=== PATIENT | male | born 1940 | race Caucasian/White ===

== ENCOUNTER → 2021-10-26 | Outpatient (REF) | payer MEDICARE, MEDICAID ==
[2021-10-26 18:50] LABS: BASO # 0.1 10^3/uL (0.0-0.2); BASO % 1.2 % (0.0-1.0); EOS # 0.1 10^3/uL (0.0-0.5); EOS % 1.3 % (0.0-3.0); HEMATOCRIT 29.1 % (42.0-52.0); HEMOGLOBIN 9.5 g/dl (13.5-17.5); LYMPH # 1.1 10^3/uL (1.5-5.0); LYMPH % 21.3 % (24.0-44.0); MEAN CORPUSCULAR HEMOGLOBIN 34.1 pg (27.0-33.0); MEAN CORPUSCULAR HGB CONC 32.6 g/dl (32.0-36.5); MEAN CORPUSCULAR VOLUME 104.3 fl (80.0-96.0); MONO # 0.7 10^3/uL (0.0-0.8); MONO % 13.2 % (2.0-8.0); NEUTROPHILS # 3.2 10^3/uL (1.5-8.5); NEUTROPHILS % 62.2 % (36.0-66.0); PLATELET COUNT, AUTOMATED 228 10^3/uL (150-450); RED BLOOD COUNT 2.79 10^6/uL (4.30-6.10); WHITE BLOOD COUNT 5.2 10^3/uL (4.0-10.0)
[2021-10-26 19:38] LABS: ALBUMIN 3.4 GM/DL (3.2-5.2); ALT/SGPT 18 U/L (12-78); BILIRUBIN,TOTAL < 0.1 MG/DL (0.2-1.0); BLOOD UREA NITROGEN 78 MG/DL (7-18); CALCIUM LEVEL 8.7 MG/DL (8.8-10.2); CARBON DIOXIDE LEVEL 23 MEQ/L (21-32); CHLORIDE LEVEL 105 MEQ/L (98-107); CREATININE FOR GFR 2.47 MG/DL (0.70-1.30); FERRITIN 355 NG/ML (26-388); FOLATE 15.8 NG/ML; FREE T4 1.06 NG/DL (0.76-1.46); GLOMERULAR FILTRATION RATE 26.9 (>35); GLUCOSE, FASTING 109 MG/DL (70-100); IRON (FE) 118 UG/DL (65-175); PERCENT SATURATION 38.4 % (19.7-50.0); POTASSIUM SERUM 4.6 MEQ/L (3.5-5.1); SODIUM LEVEL 139 MEQ/L (136-145); TOTAL 25(OH) VITAMIN D 39.8 NG/ML (30.0-100.0); TOTAL IRON BINDING CAPACITY 307 UG/DL (250-450); TOTAL PROTEIN 7.6 GM/DL (6.4-8.2); VITAMIN B12 LEVEL 803 PG/ML
[2021-10-26 19:57] LABS: HEMOGLOBIN A1c 5.2 %
== END ==
LOC: M SFHCADAM 15:18
PROVIDERS: ATTEND Physician Assistant
DX: E11.36 Type 2 diabetes mellitus with diabetic cataract (principal); I48.91 Unspecified atrial fibrillation; E53.8 Deficiency of other specified B group vitamins; E61.1 Iron deficiency; K21.9 Gastro-esophageal reflux disease without esophagitis; E55.9 Vitamin D deficiency, unspecified; R60.0 Localized edema

== ENCOUNTER → 2021-12-17 | Outpatient (REF) | payer MEDICARE, MEDICAID ==
[2021-12-17 12:57] LABS: HEMATOCRIT 27.4 % (42.0-52.0); MEAN CORPUSCULAR HGB CONC 32.8 g/dl (32.0-36.5); MEAN CORPUSCULAR VOLUME 103.4 fl (80.0-96.0); PLATELET COUNT, AUTOMATED 185 10^3/uL (150-450); RED BLOOD COUNT 2.65 10^6/uL (4.30-6.10); WHITE BLOOD COUNT 5.5 10^3/uL (4.0-10.0)
[2021-12-17 13:16] LABS: HEMOGLOBIN A1c 5.6 %
[2021-12-17 13:27] LABS: ALBUMIN 3.2 GM/DL (3.2-5.2); BILIRUBIN,TOTAL 0.6 MG/DL (0.2-1.0); CALCIUM LEVEL 8.9 MG/DL (8.8-10.2); CREATININE FOR GFR 2.69 MG/DL (0.70-1.30); GLOMERULAR FILTRATION RATE 24.4 (>35); POTASSIUM SERUM 4.4 MEQ/L (3.5-5.1); TOTAL PROTEIN 6.9 GM/DL (6.4-8.2)
[2021-12-18 17:07] LABS: FREE KAPPA LIGHT CHAINS SERUM 91.2 mg/L (3.3-19.4); FREE LAMBDA LIGHT CHAINS SERUM 55.6 mg/L (5.7-26.3); KAPPA/LAMBDA RATIO SERUM 1.64 (0.26-1.65)
== END ==
LOC: M SFHCADAM 07:30
PROVIDERS: ATTEND Physician Assistant
DX: N18.4 Chronic kidney disease, stage 4 (severe) (principal); E11.36 Type 2 diabetes mellitus with diabetic cataract; D63.1 Anemia in chronic kidney disease; I48.91 Unspecified atrial fibrillation

== ENCOUNTER 2022-02-06 13:01 | Inpatient (IN) | payer MEDICARE, MEDICAID ==
[~2022-02-06] VITALS: Ht 180.3 cm; Wt 87.3 kg
[2022-02-06] MEDS ORDERED: VITA200016 PO (13:11)
[2022-02-06] MEDS ORDERED: PANT40TA29 PO (13:11)
[2022-02-06] MEDS ORDERED: MELA3TAB30 PO (13:11)
[2022-02-06] MEDS ORDERED: LOSA50TA28 PO (13:11)
[2022-02-06] MEDS ORDERED: SIMV20TA22 PO (13:11)
[2022-02-06] MEDS ORDERED: FERR325T19 PO (13:11)
[2022-02-06] MEDS ORDERED: MULT-90 PO (13:11)
[2022-02-06] MEDS ORDERED: PRAD75CA5 PO (13:11)
[2022-02-06] MEDS ORDERED: VITA500T40 PO (13:11)
[2022-02-06] MEDS ORDERED: METO1TAB7 PO (13:11)
[2022-02-06] MEDS ORDERED: TORS20TA2 PO (13:11)
[2022-02-06 17:48] LABS: BASO # 0.1 10^3/uL (0.0-0.2); BASO % 0.6 % (0.0-1.0); EOS # 0.1 10^3/uL (0.0-0.5); EOS % 1.1 % (0.0-3.0); HEMATOCRIT 30.6 % (42.0-52.0); HEMOGLOBIN 9.9 g/dl (13.5-17.5); LYMPH # 0.8 10^3/uL (1.5-5.0); LYMPH % 9.6 % (24.0-44.0); MEAN CORPUSCULAR HGB CONC 32.4 g/dl (32.0-36.5); MEAN CORPUSCULAR VOLUME 105.2 fl (80.0-96.0); MONO # 0.9 10^3/uL (0.0-0.8); NEUTROPHILS # 6.5 10^3/uL (1.5-8.5); NEUTROPHILS % 76.7 % (36.0-66.0); PLATELET COUNT, AUTOMATED 260 10^3/uL (150-450); RED BLOOD COUNT 2.91 10^6/uL (4.30-6.10); WHITE BLOOD COUNT 8.4 10^3/uL (4.0-10.0)
[2022-02-06 18:11] LABS: ERYTHROCYTE SEDIMENTATION RATE 73 mm/hr (0-20)
[2022-02-06] MEDS ORDERED: cefTRIAXone SOD 1 GM in D5W MINI-BAG PLUS 50 ML IV ONE (18:55)
[2022-02-06] MEDS ORDERED: PIPERACILLIN/TAZOBACTAM SOD 3.375 GM in D5W MINI-BAG PLUS 50 ML IV ONE (19:00)
[2022-02-06] MEDS ORDERED: ACETAMINOPHEN 325 MG TAB PO ONE (19:00)
[2022-02-06 19:15] LABS: C REACTIVE PROTEIN QUANTITATIV 1.65 MG/DL (0.00-0.30); CALCIUM LEVEL 9.9 MG/DL (8.8-10.2); CREATININE FOR GFR 2.23 MG/DL (0.70-1.30); GLOMERULAR FILTRATION RATE 30.3 (>35); POTASSIUM SERUM 4.8 MEQ/L (3.5-5.1)
[2022-02-06] MEDS ORDERED: HOME MED LIST COMPLETE! XX SCH (20:15)
[2022-02-06 20:54] LABS: HEMOGLOBIN A1c 6.4 %
[2022-02-06] MEDS ORDERED: VANCOMYCIN HCL 750 MG, VIAL MATE ADAPTER 1 EACH in NS 250 ML IV ONE ×2 (22:00→23:00)
[2022-02-06 23:00] VITALS: BP 116/68
[2022-02-07] MEDS: PIPERACILLIN/TAZOBACTAM SOD 3.375 GM in D5W MINI-BAG PLUS 50 ML IV SCH ×2 (01:39→09:57)
[2022-02-07 02:00] VITALS: BP 116/66
[2022-02-07 05:51] VITALS: BP 110/68
[2022-02-07 06:21] LABS: BASO % 0.6 % (0.0-1.0); EOS # 0.1 10^3/uL (0.0-0.5); EOS % 1.8 % (0.0-3.0); HEMATOCRIT 26.8 % (42.0-52.0); HEMOGLOBIN 8.9 g/dl (13.5-17.5); LYMPH # 0.7 10^3/uL (1.5-5.0); MEAN CORPUSCULAR HGB CONC 33.2 g/dl (32.0-36.5); MEAN CORPUSCULAR VOLUME 105.5 fl (80.0-96.0); MONO # 0.9 10^3/uL (0.0-0.8); MONO % 13.2 % (2.0-8.0); NEUTROPHILS % 73.8 % (36.0-66.0); PLATELET COUNT, AUTOMATED 203 10^3/uL (150-450); RED BLOOD COUNT 2.54 10^6/uL (4.30-6.10); WHITE BLOOD COUNT 6.8 10^3/uL (4.0-10.0)
[2022-02-07 06:43] LABS: ALBUMIN 2.8 GM/DL (3.2-5.2); BILIRUBIN,TOTAL 0.8 MG/DL (0.2-1.0); CALCIUM LEVEL 9.4 MG/DL (8.8-10.2); CREATININE FOR GFR 1.96 MG/DL (0.70-1.30); GLOMERULAR FILTRATION RATE 35.1 (>35); POTASSIUM SERUM 4.6 MEQ/L (3.5-5.1); TOTAL PROTEIN 6.6 GM/DL (6.4-8.2)
[2022-02-07] MEDS: FERROUS SULFATE 325MG TAB PO SCH (09:58)
[2022-02-07] MEDS: SIMVASTATIN 20 MG TAB PO SCH (09:58)
[2022-02-07] MEDS: SANTYL OINT 30GM TOP SCH (09:58)
[2022-02-07 10:00] VITALS: BP 129/72
[2022-02-07] MEDS: LOSARTAN 50MG TABLET PO SCH (10:00)
[2022-02-07] MEDS: PANTOPRAZOLE 40MG TAB (PROTONIX) PO SCH (10:01)
[2022-02-07] MEDS: TORSEMIDE 20 MG TAB PO SCH (10:01)
[2022-02-07] MEDS: METOPROLOL SUCC (TopROL XL) 50MG **XL** TAB PO SCH (10:01)
[2022-02-07] MEDS ORDERED: ACETAMINOPHEN TAB 650MG DOSE (2X325MG) PO PRN (10:40)
[2022-02-07] MEDS ORDERED: VANCOMYCIN HCL 1,000 MG, VIAL MATE ADAPTER 1 EACH in NS 250 ML IV SCH (13:00)
[2022-02-07 14:00] VITALS: BP 102/58
[2022-02-07] MEDS: PIPERACILLIN/TAZOBACTAM SOD 2.25 GM in D5W MINI-BAG PLUS 50 ML IV SCH ×2 (14:24→20:28)
[2022-02-07] MEDS ORDERED: CYANOCOBALAMIN 500 MCG TAB PO SCH (17:00)
[2022-02-07 18:00] VITALS: BP 106/52
[2022-02-07 22:00] VITALS: BP 102/59
[2022-02-08 02:00] VITALS: BP 99/68
[2022-02-08] MEDS: PIPERACILLIN/TAZOBACTAM SOD 2.25 GM in D5W MINI-BAG PLUS 50 ML IV SCH ×2 (03:15→08:06)
[2022-02-08 06:00] VITALS: BP 102/67
[2022-02-08 06:22] LABS: BASO % 0.5 % (0.0-1.0); EOS # 0.1 10^3/uL (0.0-0.5); EOS % 2.1 % (0.0-3.0); HEMATOCRIT 26.1 % (42.0-52.0); HEMOGLOBIN 8.5 g/dl (13.5-17.5); LYMPH # 0.6 10^3/uL (1.5-5.0); MEAN CORPUSCULAR HEMOGLOBIN 34.7 pg (27.0-33.0); MEAN CORPUSCULAR HGB CONC 32.6 g/dl (32.0-36.5); MEAN CORPUSCULAR VOLUME 106.5 fl (80.0-96.0); MONO % 14.5 % (2.0-8.0); NEUTROPHILS # 4.8 10^3/uL (1.5-8.5); NEUTROPHILS % 73.1 % (36.0-66.0); PLATELET COUNT, AUTOMATED 191 10^3/uL (150-450); RED BLOOD COUNT 2.45 10^6/uL (4.30-6.10); WHITE BLOOD COUNT 6.5 10^3/uL (4.0-10.0)
[2022-02-08 06:54] LABS: ALBUMIN 2.6 GM/DL (3.2-5.2); BILIRUBIN,TOTAL 0.7 MG/DL (0.2-1.0); CALCIUM LEVEL 8.8 MG/DL (8.8-10.2); CREATININE FOR GFR 2.13 MG/DL (0.70-1.30); GLOMERULAR FILTRATION RATE 31.9 (>35); POTASSIUM SERUM 4.2 MEQ/L (3.5-5.1); TOTAL PROTEIN 6.4 GM/DL (6.4-8.2)
[2022-02-08] MEDS: PANTOPRAZOLE 40MG TAB (PROTONIX) PO SCH (08:04)
[2022-02-08 08:05] VITALS: BP 102/67
[2022-02-08] MEDS: TORSEMIDE 20 MG TAB PO SCH (08:05)
[2022-02-08] MEDS: METOPROLOL SUCC (TopROL XL) 50MG **XL** TAB PO SCH (08:05)
[2022-02-08] MEDS: SIMVASTATIN 20 MG TAB PO SCH (08:06)
[2022-02-08] MEDS: FERROUS SULFATE 325MG TAB PO SCH (08:06)
[2022-02-08] MEDS: LOSARTAN 50MG TABLET PO SCH (08:06)
[2022-02-08] MEDS: SANTYL OINT 30GM TOP SCH (08:11)
[2022-02-08] MEDS ORDERED: DABIGATRAN ETEXILATE 75 MG CAP (PRADAXA) PO SCH (09:00)
[2022-02-08 10:00] VITALS: BP 98/55
[2022-02-08] MEDS ORDERED: SANT250O8 TOP (14:09)
[2022-02-08] MEDS ORDERED: CVS1CAP2 PO (14:09)
[2022-02-08] MEDS ORDERED: AUGM500T34 PO (14:09)
== END 2022-02-08 15:22 | disposition home health service (06) | DRG 623 ==
LOC: M ED 13:01 → M ED INP 19:58 → ENRESERV 21:21 → M MSPAV 22:29
PROVIDERS: ADMIT Family Medicine; ATTEND Internal Medicine
PROC: 0JBQ0ZZ Excision of Right Foot Subcutaneous Tissue and Fascia, Open Approach (ICD-10-PCS; principal; 2022-02-07)
DX: E11.621 Type 2 diabetes mellitus with foot ulcer (principal); I50.32 Chronic diastolic (congestive) heart failure; L89.619 Pressure ulcer of right heel, unspecified stage; I11.0 Hypertensive heart disease with heart failure; E11.40 Type 2 diabetes mellitus with diabetic neuropathy, unspecified; K21.9 Gastro-esophageal reflux disease without esophagitis; E78.00 Pure hypercholesterolemia, unspecified; I48.91 Unspecified atrial fibrillation; E78.5 Hyperlipidemia, unspecified; Z89.512 Acquired absence of left leg below knee; Z79.899 Other long term (current) drug therapy; Z66 Do not resuscitate; Z98.42 Cataract extraction status, left eye

== ENCOUNTER → 2022-03-20 | Outpatient (REF) | payer MEDICARE, MEDICAID ==
[~2022-03-20] MED LIST: AUGM500T34 PO; CVS1CAP2 PO; FERR325T19 PO; LOSA50TA28 PO; MELA3TAB30 PO; METO1TAB7 PO; MULT-90 PO; PANT40TA29 PO; PRAD75CA5 PO; SANT250O8 TOP; SIMV20TA22 PO; TORS20TA2 PO; VITA200016 PO; VITA500T40 PO
[2022-03-20 13:03] LABS: HEMATOCRIT 30.5 % (42.0-52.0); HEMOGLOBIN 9.8 g/dl (13.5-17.5); MEAN CORPUSCULAR HEMOGLOBIN 35.1 pg (27.0-33.0); MEAN CORPUSCULAR HGB CONC 32.1 g/dl (32.0-36.5); MEAN CORPUSCULAR VOLUME 109.3 fl (80.0-96.0); PLATELET COUNT, AUTOMATED 215 10^3/uL (150-450); RED BLOOD COUNT 2.79 10^6/uL (4.30-6.10); WHITE BLOOD COUNT 6.2 10^3/uL (4.0-10.0)
[2022-03-20 13:36] LABS: ALBUMIN 3.3 GM/DL (3.2-5.2); BILIRUBIN,TOTAL 0.6 MG/DL (0.2-1.0); CALCIUM LEVEL 9.8 MG/DL (8.8-10.2); CREATININE FOR GFR 2.07 MG/DL (0.70-1.30); GLOMERULAR FILTRATION RATE 32.9 (>35); POTASSIUM SERUM 4.8 MEQ/L (3.5-5.1); TOTAL PROTEIN 7.9 GM/DL (6.4-8.2)
== END ==
LOC: M SFHCADAM 08:11
PROVIDERS: ATTEND Physician Assistant
DX: E11.36 Type 2 diabetes mellitus with diabetic cataract (principal); D63.1 Anemia in chronic kidney disease; N18.4 Chronic kidney disease, stage 4 (severe)

== ENCOUNTER → 2022-06-12 | Outpatient (REF) | payer MEDICARE, MEDICAID ==
[2022-06-12 18:56] LABS: IRON (FE) 35 UG/DL (65-175); PERCENT SATURATION 13.5 % (19.7-50.0); TOTAL IRON BINDING CAPACITY 260 UG/DL (250-450)
[2022-06-12 18:57] LABS: FERRITIN 349 NG/ML (26-388)
[2022-06-12 19:48] LABS: FOLATE 10.9 NG/ML
[2022-06-13 10:00] LABS: VITAMIN B12 LEVEL > 2000 PG/ML
== END ==
LOC: M LAB REF 17:48
PROVIDERS: ATTEND Internal Medicine Nephrology
DX: N18.9 Chronic kidney disease, unspecified (principal); D63.1 Anemia in chronic kidney disease

== ENCOUNTER → 2023-01-02 | Outpatient (CLI) | payer MEDICARE, MEDICAID ==
[2023-01-02 13:14] LABS: BASO % 0.5 % (0.0-1.0); EOS # 0.1 10^3/uL (0.0-0.5); EOS % 0.8 % (0.0-3.0); HEMATOCRIT 31.6 % (42.0-52.0); HEMOGLOBIN 10.3 g/dl (13.5-17.5); LYMPH # 0.6 10^3/uL (1.5-5.0); LYMPH % 9.3 % (24.0-44.0); MEAN CORPUSCULAR HEMOGLOBIN 34.3 pg (27.0-33.0); MEAN CORPUSCULAR HGB CONC 32.6 g/dl (32.0-36.5); MEAN CORPUSCULAR VOLUME 105.3 fl (80.0-96.0); MONO % 17.1 % (2.0-8.0); NEUTROPHILS # 4.3 10^3/uL (1.5-8.5); NEUTROPHILS % 71.8 % (36.0-66.0); PLATELET COUNT, AUTOMATED 251 10^3/uL (150-450)
[2023-01-02 13:37] LABS: C REACTIVE PROTEIN QUANTITATIV 12.2 MG/DL (<1.0)
[2023-01-02 13:39] LABS: ERYTHROCYTE SEDIMENTATION RATE > 130 mm/hr (0-20)
[2023-01-02 13:41] LABS: ALBUMIN 2.6 G/DL (3.2-5.2); BILIRUBIN,TOTAL 0.8 MG/DL (0.3-1.2); CALCIUM LEVEL 8.7 MG/DL (8.3-10.6); CREATININE FOR GFR 1.81 MG/DL (0.70-1.30); GLOMERULAR FILTRATION RATE 38.4 (>35); POTASSIUM SERUM 4.1 MMOL/L (3.5-5.1); TOTAL PROTEIN 7.2 G/DL (5.7-8.2)
[2023-01-02 14:19] LABS: HEMOGLOBIN A1c 5.8 % (4.0-6.0)
== END ==
LOC: M PLALAB 11:03
PROVIDERS: ATTEND Physician Assistant
DX: M79.89 Other specified soft tissue disorders (principal); S69.92XA Unspecified injury of left wrist, hand and finger(s), initial encounter; L03.012 Cellulitis of left finger; E11.36 Type 2 diabetes mellitus with diabetic cataract; W22.8XXA Striking against or struck by other objects, initial encounter; Y92.9 Unspecified place or not applicable; Y93.9 Activity, unspecified; Y99.9 Unspecified external cause status

== ENCOUNTER 2023-02-09 12:14 | Inpatient (IN) | payer MEDICARE, MEDICAID ==
[~2023-02-09] VITALS: Ht 180.3 cm; Wt 82.7 kg
[2023-02-09 13:11] LABS: VENOUS BASE EXCESS -7.5 (-2.0-2.0); VENOUS HCO3 18.5 MMOL/L (23.0-27.0); VENOUS O2 SATURATION 71.1 % (60.0-80.0); VENOUS PARTIAL PRESSURE O2 40.7 mmHg (30.0-50.0); VENOUS PH 7.293 UNITS (7.330-7.430); VENOUS STANDARD HCO3 17.9 MMOL/L; VENOUS TOTAL CO2 19.7 MMOL/L (24.0-28.0)
[2023-02-09 13:16] LABS: BASO # 0.1 10^3/uL (0.0-0.2); BASO % 0.3 % (0.0-1.0); EOS % 0.1 % (0.0-3.0); HEMATOCRIT 28.7 % (42.0-52.0); HEMOGLOBIN 9.8 g/dl (13.5-17.5); LYMPH # 0.4 10^3/uL (1.5-5.0); LYMPH % 2.3 % (24.0-44.0); MEAN CORPUSCULAR HEMOGLOBIN 34.6 pg (27.0-33.0); MEAN CORPUSCULAR HGB CONC 34.1 g/dl (32.0-36.5); MEAN CORPUSCULAR VOLUME 101.4 fl (80.0-96.0); MONO # 1.2 10^3/uL (0.0-0.8); NEUTROPHILS # 14.8 10^3/uL (1.5-8.5); PLATELET COUNT, AUTOMATED 344 10^3/uL (150-450); RED BLOOD COUNT 2.83 10^6/uL (4.30-6.10); WHITE BLOOD COUNT 16.7 10^3/uL (4.0-10.0)
[2023-02-09] MEDS ORDERED: VANCOMYCIN HCL 1,750 MG in NS 250 ML IV ONE (13:20)
[2023-02-09 13:35] LABS: INR 2.43; PROTHROMBIN TIME 26.8 SECONDS (12.5-14.5)
[2023-02-09 13:48] LABS: CREATININE FOR GFR 2.42 MG/DL (0.70-1.30); FREE T4 1.07 NG/DL (0.89-1.76); GLOMERULAR FILTRATION RATE 27.5 (>35); MAGNESIUM LEVEL 1.7 MG/DL (1.8-2.4)
[2023-02-09 13:50] LABS: THYROID STIMULATING HORMONE 1.258 uIU/ML (0.55-4.78)
[2023-02-09] MEDS ORDERED: VANCOMYCIN HCL 750 MG, VIAL MATE ADAPTER 1 EACH in D5W 250 ML IV ONE ×6 (15:00)
[2023-02-09 16:49] LABS: RSV AMPLIFICATION NEGATIVE (NEGATIVE)
[2023-02-09] MEDS ORDERED: ONDANSETRON 4MG 2ML VIAL IV ONE (17:55)
[2023-02-09] MEDS: MORPHINE 2 MG/ML 1ML VIAL IV PRN ×2 (18:00→18:05)
[2023-02-09] MEDS ORDERED: AMPICILLIN SOD/SULBACTAM SOD 3 GM in D5W MINI-BAG PLUS 100 ML IV ONE (20:00)
[2023-02-09] MEDS ORDERED: ALLO100T PO (20:42)
[2023-02-09] MEDS ORDERED: LOSA25TA13 PO (20:42)
[2023-02-09] MEDS ORDERED: FAMO20TA5 PO (20:42)
[2023-02-09] MEDS ORDERED: HYDR-3363 PO (20:42)
[2023-02-09] MEDS ORDERED: HOME MED LIST COMPLETE! XX SCH (20:45)
[2023-02-09] MEDS ORDERED: FAMOTIDINE 20 MG TAB PO PRN (20:55)
[2023-02-09] MEDS ORDERED: NS 1,000 ML IV SCH (21:00)
[2023-02-09 21:27] LABS: APPEARANCE, URINE CLEAR (CLEAR); BACTERIA, URINE AUTO NEGATIVE (NEGATIVE); BILIRUBIN, URINE AUTO NEGATIVE (NEGATIVE); BLOOD, URINE BLOOD NEGATIVE (NEGATIVE); COLOR, URINE YELLOW (YELLOW); GLUCOSE, URINE (UA) AUTO NEGATIVE (NEGATIVE); KETONE, URINE AUTO NEGATIVE (NEGATIVE); LEUKOCYTE ESTERASE, URINE AUTO NEGATIVE (NEGATIVE); NITRITE, URINE AUTO NEGATIVE (NEGATIVE); PROTEIN, URINE AUTO NEGATIVE (NEGATIVE); RBC, URINE AUTO 0 /HPF (0-3); SPECIFIC GRAVITY URINE AUTO 1.012 (1.002-1.035); SQUAMOUS EPITHELIAL CELL UR AU 0 /HPF (0-6); UROBILINOGEN, URINE AUTO 0.2 mg/dL (0.0-2.0); WBC, URINE AUTO 1 /HPF (0-3)
[2023-02-09 21:35] LABS: TOTAL PROTEIN,RANDOM URINE 42.5 MG/DL (0.0-14.0)
[2023-02-09 21:40] LABS: CREATININE,RANDOM URINE 40.8 MG/DL
[2023-02-09] MEDS: SIMVASTATIN 20 MG TAB PO SCH (22:14)
[2023-02-09 22:50] VITALS: BP 106/57
[2023-02-09] MEDS: cefTRIAXone SOD 2 GM in D5W MINI-BAG PLUS 50 ML IV SCH (23:56)
[2023-02-10] VITALS (8 sets, daily range): BP systolic 84–105; BP diastolic 48–62
[2023-02-10] MEDS ORDERED: VANCOMYCIN HCL 750 MG, VIAL MATE ADAPTER 1 EACH in D5W 250 ML IV SCH (01:00)
[2023-02-10 04:47] LABS: HEMATOCRIT 26.9 % (42.0-52.0); HEMOGLOBIN 9.4 g/dl (13.5-17.5); MEAN CORPUSCULAR HEMOGLOBIN 35.3 pg (27.0-33.0); MEAN CORPUSCULAR HGB CONC 34.9 g/dl (32.0-36.5); MEAN CORPUSCULAR VOLUME 101.1 fl (80.0-96.0); PLATELET COUNT, AUTOMATED 270 10^3/uL (150-450); RED BLOOD COUNT 2.66 10^6/uL (4.30-6.10); WHITE BLOOD COUNT 11.6 10^3/uL (4.0-10.0)
[2023-02-10 05:35] LABS: CALCIUM LEVEL 8.3 MG/DL (8.3-10.6); CREATININE FOR GFR 2.2 MG/DL (0.70-1.30); GLOMERULAR FILTRATION RATE 30.7 (>35); MAGNESIUM LEVEL 1.6 MG/DL (1.8-2.4)
[2023-02-10] MEDS ORDERED: MAG SULF 1GM/100ML (MAG RUN) 1 GM in IV 1 EA IV ONE (05:40)
[2023-02-10] MEDS: ACETAMINOPHEN TAB 650MG DOSE (2X325MG) PO PRN ×2 (06:21→12:27)
[2023-02-10 07:32] LABS: VANCOMYCIN RANDOM 11.1 UG/ML
[2023-02-10 07:34] LABS: ALBUMIN 1.9 G/DL (3.2-5.2); BILIRUBIN,DIRECT 0.5 MG/DL (<0.4); BILIRUBIN,TOTAL 0.7 MG/DL (0.3-1.2); TOTAL PROTEIN 6.4 G/DL (5.7-8.2)
[2023-02-10 07:55] LABS: VENOUS BASE EXCESS -7.7 (-2.0-2.0); VENOUS HCO3 17.3 MMOL/L (23.0-27.0); VENOUS O2 SATURATION 97.5 % (60.0-80.0); VENOUS PARTIAL PRESSURE CO2 33.1 mmHg (38.0-50.0); VENOUS PARTIAL PRESSURE O2 102.9 mmHg (30.0-50.0); VENOUS PH 7.335 UNITS (7.330-7.430); VENOUS STANDARD HCO3 18.1 MMOL/L; VENOUS TOTAL CO2 18.3 MMOL/L (24.0-28.0)
[2023-02-10] MEDS ORDERED: VANCOMYCIN HCL 1,000 MG, VIAL MATE ADAPTER 1 EACH in D5W 250 ML IV SCH (08:00)
[2023-02-10] MEDS ORDERED: VANCOMYCIN HCL 1,000 MG, VIAL MATE ADAPTER 1 EACH in NS 250 ML IV SCH (08:00)
[2023-02-10] MEDS: allopurinoL 100 MG TAB PO SCH (08:16)
[2023-02-10] MEDS: PANTOPRAZOLE 40MG TAB (PROTONIX) PO SCH (08:16)
[2023-02-10] MEDS ORDERED: TORSEMIDE 20 MG TAB PO SCH (09:00)
[2023-02-10] MEDS ORDERED: LOSARTAN 25 MG TAB PO SCH (09:00)
[2023-02-10] MEDS ORDERED: METOPROLOL SUCC (TopROL XL) 50MG **XL** TAB PO SCH (09:00)
[2023-02-10] MEDS: SIMVASTATIN 20 MG TAB PO SCH (20:25)
[2023-02-10] MEDS: cefTRIAXone SOD 2 GM in D5W MINI-BAG PLUS 50 ML IV SCH (22:15)
[2023-02-11 03:48] VITALS: BP 102/50
[2023-02-11 04:37] LABS: BASO % 0.4 % (0.0-1.0); EOS # 0.1 10^3/uL (0.0-0.5); EOS % 0.7 % (0.0-3.0); HEMATOCRIT 25.7 % (42.0-52.0); HEMOGLOBIN 8.7 g/dl (13.5-17.5); LYMPH # 0.6 10^3/uL (1.5-5.0); LYMPH % 5.6 % (24.0-44.0); MEAN CORPUSCULAR HEMOGLOBIN 34.1 pg (27.0-33.0); MEAN CORPUSCULAR HGB CONC 33.9 g/dl (32.0-36.5); MEAN CORPUSCULAR VOLUME 100.8 fl (80.0-96.0); MONO # 1.1 10^3/uL (0.0-0.8); MONO % 10.3 % (2.0-8.0); NEUTROPHILS # 8.7 10^3/uL (1.5-8.5); PLATELET COUNT, AUTOMATED 268 10^3/uL (150-450); RED BLOOD COUNT 2.55 10^6/uL (4.30-6.10); WHITE BLOOD COUNT 10.7 10^3/uL (4.0-10.0)
[2023-02-11 05:07] LABS: ERYTHROCYTE SEDIMENTATION RATE > 130 mm/hr (0-20)
[2023-02-11 05:10] LABS: C REACTIVE PROTEIN QUANTITATIV 18.2 MG/DL (<1.0)
[2023-02-11 05:12] LABS: ALBUMIN 1.8 G/DL (3.2-5.2); BILIRUBIN,TOTAL 0.6 MG/DL (0.3-1.2); CALCIUM LEVEL 8.3 MG/DL (8.3-10.6); CREATININE FOR GFR 2.63 MG/DL (0.70-1.30); MAGNESIUM LEVEL 1.8 MG/DL (1.8-2.4); POTASSIUM SERUM 3.9 MMOL/L (3.5-5.1); TOTAL PROTEIN 6.3 G/DL (5.7-8.2)
[2023-02-11 07:59] VITALS: BP 94/52
[2023-02-11] MEDS ORDERED: FUROSEMIDE 40MG/4ML VIAL IV SCH (09:00)
[2023-02-11] MEDS: allopurinoL 100 MG TAB PO SCH (09:11)
[2023-02-11] MEDS: PANTOPRAZOLE 40MG TAB (PROTONIX) PO SCH (09:11)
[2023-02-11 10:56] LABS: INR 2.21; PROTHROMBIN TIME 24.9 SECONDS (12.5-14.5)
[2023-02-11] MEDS ORDERED: MORPHINE 2 MG/ML 1ML VIAL IV ONE (11:20)
[2023-02-11 11:42] VITALS: BP 92/56
[2023-02-11 11:47] VITALS: BP 90/48
[2023-02-11] MEDS ORDERED: ACETAMINOPHEN 500 MG TAB PO ONE (11:50)
[2023-02-11] MEDS ORDERED: VANCOMYCIN HCL 750 MG, VIAL MATE ADAPTER 1 EACH in D5W 250 ML IV SCH (12:00)
[2023-02-11] MEDS ORDERED: SCOPOLAMINE 1MG TRANSDERMAL PATCH TOP PRN (12:45)
[2023-02-11] MEDS ORDERED: ONDANSETRON 4MG ORAL DISINTEGRATING TAB PO PRN (12:45)
[2023-02-11] MEDS: MORPHINE 10MG/0.5ML ORAL CONCENTRATE SOLUTION U/D SL PRN ×3 (17:42→22:00)
[2023-02-11] MEDS: LORazepam 1 MG TAB PO PRN ×2 (18:56→23:10)
[2023-02-11] MEDS: ACETAMINOPHEN TAB 650MG DOSE (2X325MG) PO PRN (20:13)
[2023-02-12] MEDS: MORPHINE 10MG/0.5ML ORAL CONCENTRATE SOLUTION U/D SL PRN (04:04)
[2023-02-12] MEDS: LORazepam 1 MG TAB PO PRN ×2 (05:26→22:08)
[2023-02-13] MEDS: MORPHINE 10MG/0.5ML ORAL CONCENTRATE SOLUTION U/D SL PRN ×3 (08:15→21:44)
[2023-02-13] MEDS: LORazepam 1 MG TAB PO PRN (18:36)
[2023-02-14] MEDS: LORazepam 1 MG TAB PO PRN (03:11)
[2023-02-14] MEDS: MORPHINE 10MG/0.5ML ORAL CONCENTRATE SOLUTION U/D SL PRN ×3 (03:13→19:48)
[2023-02-15] MEDS: MORPHINE 10MG/0.5ML ORAL CONCENTRATE SOLUTION U/D SL PRN ×4 (02:16→23:41)
[2023-02-15] MEDS: LORazepam 1 MG TAB PO PRN ×2 (02:17→23:44)
[2023-02-16] MEDS ORDERED: MORPHINE 10MG/0.5ML ORAL CONCENTRATE SOLUTION U/D SL ONE (01:00)
[2023-02-16] MEDS: MORPHINE 10MG/0.5ML ORAL CONCENTRATE SOLUTION U/D SL PRN ×2 (06:43→21:07)
[2023-02-16] MEDS: LORazepam 1 MG TAB PO PRN (21:04)
[2023-02-17] MEDS: MORPHINE 10MG/0.5ML ORAL CONCENTRATE SOLUTION U/D SL PRN ×2 (13:05→17:45)
[2023-02-17] MEDS: LORazepam 1 MG TAB PO PRN (21:10)
[2023-02-18] MEDS: MORPHINE 10MG/0.5ML ORAL CONCENTRATE SOLUTION U/D SL PRN (09:42)
[2023-02-18] MEDS ORDERED: MORP1SOL SL (10:20)
[2023-02-18] MEDS ORDERED: ONDA4TAB6 PO (10:20)
[2023-02-18] MEDS ORDERED: ACET1TAB55 PO (10:20)
[2023-02-18] MEDS ORDERED: ATIV1TAB7 PO (10:20)
[2023-02-18] MEDS ORDERED: HYDR-3363 PO (10:20)
[2023-02-18] MEDS ORDERED: TRAN1DIS4 TOP (10:20)
== END 2023-02-18 11:30 | disposition hospice, inpatient (51) | DRG 558 ==
LOC: M ED 12:14 → EDBD 12:14 → EEVIPCON 20:51 → M ED INP 20:51 → M PCU 22:39 → M MSPAV 02-11 15:09
PROVIDERS: ADMIT Internal Medicine; ATTEND Student in an Organized Health Care Education/Training Program
DX: M65.142 Other infective (teno)synovitis, left hand (principal); I50.32 Chronic diastolic (congestive) heart failure; E87.20 Acidosis, unspecified; L03.114 Cellulitis of left upper limb; L02.512 Cutaneous abscess of left hand; J98.11 Atelectasis; N17.9 Acute kidney failure, unspecified; I13.0 Hypertensive heart and chronic kidney disease with heart failure and stage 1 through stage 4 chronic kidney disease, or unspecified chronic kidney disease; C90.00 Multiple myeloma not having achieved remission; N18.30 Chronic kidney disease, stage 3 unspecified; I73.9 Peripheral vascular disease, unspecified; Z89.512 Acquired absence of left leg below knee; E78.5 Hyperlipidemia, unspecified; I48.91 Unspecified atrial fibrillation; K21.9 Gastro-esophageal reflux disease without esophagitis; R29.6 Repeated falls; Z99.3 Dependence on wheelchair; R53.1 Weakness; I77.9 Disorder of arteries and arterioles, unspecified; E11.51 Type 2 diabetes mellitus with diabetic peripheral angiopathy without gangrene; E11.42 Type 2 diabetes mellitus with diabetic polyneuropathy; E11.22 Type 2 diabetes mellitus with diabetic chronic kidney disease; D64.9 Anemia, unspecified; I25.10 Atherosclerotic heart disease of native coronary artery without angina pectoris; M19.90 Unspecified osteoarthritis, unspecified site; Z74.01 Bed confinement status; I27.20 Pulmonary hypertension, unspecified; Z79.899 Other long term (current) drug therapy; Z98.42 Cataract extraction status, left eye